=== PATIENT | female | born 1995 | race Caucasian/White ===

== ENCOUNTER → 2018-08-27 | Outpatient (CLI) | payer BC ==
[~2018-08-27] MED LIST: IOHEXOL 350 MG/ML 100 ML (OMNIPAQUE 350) VIAL IV ONE; NS 100 ML (IVPB) BAG IV ONE; RECEIVED CONTRAST (Hold Metformin) IV SCH
--- NOTE | 2018-08-27 16:33 | Diagnostic Imaging Report ---
PROCEDURE: CT neck soft tissue with contrast. TECHNIQUE: Multiple contiguous axial images were obtained through the neck after the administration of contrast. INDICATION: Enlarged salivary gland. COMPARISON: There are no prior studies available for comparison. FINDINGS: The left submandibular gland does seem slightly larger than the right. The left submandibular gland measures approximately 3.0 cm in maximum length while the right is estimated to be 2.7 cm. The submandibular glands appear homogeneous and symmetrical otherwise. The left parotid gland may also be slightly larger than the right. There is no focal mass involving either parotid gland. The thyroid gland is not enlarged and generally homogeneous. There is no mass or adenopathy involving the neck. The lung apices are clear. The bone window show no evidence for a fracture or an acute abnormality. However, the heads of the clavicles do lie posterior to the expected articulation with the sternum. This finding is probably long-standing in nature. Whether this is a sequela of prior trauma or due to an underlying connective tissue abnormality is not certain. Correlation with the patient's physical exam would be recommended. There is no fracture identified. The intracranial contents, where visualized, are unremarkable. The normal tentorial blush is evident. IMPRESSION: 1. The left submandibular gland and left parotid gland seem slightly larger than the corresponding right submandibular and parotid glands. There is no focal abnormality involving either the submandibular or parotid glands, however. 2. There is no acute abnormality of the neck. Dictated by: Dictated on workstation # [id number]
== END ==
LOC: RAD 15:00
PROVIDERS: ATTEND Otolaryngology Otolaryngology/Facial Plastic Surgery
DX: K11.1 Hypertrophy of salivary gland (principal)
CPT/HCPCS: 70491

== ENCOUNTER 2018-10-15 05:31 | Outpatient (CLI) | payer BC ==
[~2018-10-15] VITALS: Ht 175.3 cm; Wt 106.6 kg
[2018-10-15] MEDS ORDERED: TRAZ-189 PO (10:06)
[2018-10-15] MEDS ORDERED: SERT50TA9 PO (10:19)
[2018-10-15] MEDS ORDERED: bcp PO (10:19)
== END 2018-10-15 10:23 | disposition home or self-care (01) ==
LOC: PREOP 05:31
PROVIDERS: ATTEND Otolaryngology Otolaryngology/Facial Plastic Surgery
DX: Z01.818 Encounter for other preprocedural examination (principal)

== ENCOUNTER 2018-10-19 06:55 | Day surgery (SDC) | payer BC ==
[~2018-10-19] VITALS: Ht 175.3 cm; Wt 106.6 kg
[~2018-10-19 06:55] MED LIST changes: -IOHEXOL 350 MG/ML 100 ML (OMNIPAQUE 350) VIAL IV ONE; -NS 100 ML (IVPB) BAG IV ONE; -RECEIVED CONTRAST (Hold Metformin) IV SCH; +SERT50TA9 PO; +TRAZ-189 PO; +bcp PO
--- OUTSIDE RECORDS SUMMARY | 2018-10-19 06:59 | XMS REPORT | Clinical Summary ---
Author Author Admin, E Organization [employer] Address Unknown Phone Unavailable Allergies, Adverse Reactions, Alerts Allergy Name Reaction Description Start Date Severity Status Provider FENTANYL rash Critical Active Berto Hernández DO Conditions or Problems Problem Name Problem Code Onset Date Status Entry Date Provider Comment Standard Description Annotate Asthma, with acute exacerbation 493.92 Active Berto Hernández DO Asthma, unspecified with (acute) exacerbation Bronchitis 490 Active Jillina Frazell C ARCHITECT Bronchitis, not specified as acute or chronic Medication List Medication Instructions Start Date Stop Date Generic Name NDC Status Provider Patient Instruction VENTOLIN HFA 108 (90 BASE) MCG/ACT AERS 2 puffs q4hr PRN SOA ALBUTEROL SULFATE 63243117106 Active Jillina Frazell C ARCHITECT Active DIPHENHYDRAMINE HCL 25 MG ORAL TABS 1 tab po q pm DIPHENHYDRAMINE HCL 42359600888 Active Jillina Frazell C ARCHITECT Active CLARITIN 10 MG TAB 1 tab po q am LORATADINE 48105080438 Active Jillina Frazell C ARCHITECT Active PREDNISONE 20 MG TAB 2 tabs daily for 4 days, 1 tab daily for 4 days, 1/2 tab daily for 4 days PREDNISONE 52084236848 Active Jillina Frazell C ARCHITECT Active AZITHROMYCIN 250 MG TABS 2 po qd x 1 day, then 1 po qd x 4 days AZITHROMYCIN 55756936683 Active Jillina Frazell C ARCHITECT Active HYDROCODONE-ACETAMINOPHEN 5-325 MG TABS 1 tablet at night as needed for cough HYDROCODONE-ACETAMINOPHEN 04343335340 No Longer Active Jillina Frazell C ARCHITECT Active PREDNISONE 20 MG TAB 1 tablet twice daily for 2 days, then 1 tablet once daily for 2 days PREDNISONE 00193720966 No Longer Active Lina Coley APRN Active AZITHROMYCIN 250 MG TABS 2 po qd x 1 day, then 1 po qd x 4 days AZITHROMYCIN 79399286606 No Longer Active Berto Hernández DO Active ENSKYCE 0.15-30 MG-MCG ORAL TABS Take one by mouth daily DESOGESTREL-ETHINYL ESTRADIOL 25700102879 Active Berto Hernández DO Active PREDNISONE 20 MG TAB 1 tablet twice daily for 2 days, then 1 tablet once daily for 2 days PREDNISONE 20 MG TAB 692226 PREDNISONE Inactive HYDROCODONE-ACETAMINOPHEN 5-325 MG TABS 1 tablet at night as needed for cough HYDROCODONE-ACETAMINOPHEN 5-325 MG TABS 135353 HYDROCODONE-ACETAMINOPHEN Inactive AZITHROMYCIN 250 MG TABS 2 po qd x 1 day, then 1 po qd x 4 days AZITHROMYCIN 250 MG TABS 2620314 AZITHROMYCIN Inactive Vital Signs Date Name Value Unit Range Description blood pressure, diastolic - 8462-4 62 mm[Hg] BP joyner blood pressure, systolic - 8480-6 114 mm[Hg] BP sys height E&M - 8302-2 69 [in_us] Bdy height pulse rate E&M - 8867-4 72 /min Heart rate temperature E&M 99.3 [degF] Body temperature weight E&M - 3141-9 196 [lb_av] Weight Measured blood pressure, diastolic - 8462-4 76 mm[Hg] BP joyner blood pressure, systolic - 8480-6 117 mm[Hg] BP sys height E&M - 8302-2 69 [in_us] Bdy height pulse rate E&M - 8867-4 61 /min Heart rate temperature E&M 98.5 [degF] Body temperature weight E&M - 3141-9 188.5 [lb_av] Weight Measured Encounters Code Encounter Date Provider Facility CPT-97221 Level 4 Est. Patient 09:04:07 CDT Lina Coley APRN [facility] CPT-40482 Level 3 New Patient 17:46:16 CDT Berto Hernández DO [facility]
--- OUTSIDE RECORDS SUMMARY | 2018-10-19 06:59 | XMS REPORT | Clinical Summary ---
Author Author Admin, E Organization [facility] Address Unknown Phone Unavailable Allergies, Adverse Reactions, Alerts Allergy Name Reaction Description Start Date Severity Status Provider FENTANYL rash Critical Active Berto Hernández DO Conditions or Problems Problem Name Problem Code Onset Date Status Entry Date Provider Comment Standard Description Annotate Asthma, with acute exacerbation 493.92 Active Berto Hernández DO Asthma, unspecified with (acute) exacerbation Bronchitis 490 Active Jillina Frazell SUPERVISOR [employer]LECTRON[employer]SEMBL[employer] Bronchitis, not specified as acute or chronic Medication List Medication Instructions Start Date Stop Date Generic Name NDC Status Provider Patient Instruction SYMBICORT 160-4.5 MCG/ACT INH AERO BUDESONIDE-FORMOTEROL FUMARATE 13478210489 Active Jillina Frazell SUPERVIS[employer] Active VENTOLIN HFA 108 (90 BASE) MCG/ACT AERS 2 puffs q4hr PRN SOA ALBUTEROL SULFATE 83497905461 Active Jillina Frazell SUPERVISOR ELECTRONICS [employer]SEMBLY Active DIPHENHYDRAMINE HCL 25 MG ORAL TABS 1 tab po q pm DIPHENHYDRAMINE HCL 74714528688 Active Jillina Frazell SUPERVISOR ELECTRONICS [employer]SEMBLY Active CLARITIN 10 MG TAB 1 tab po q am LORATADINE 98240877042 Active Jillina Frazell SUPERVISOR [employer]LECTRONICS [employer]SEMBLY Active PREDNISONE 20 MG TAB 2 tabs daily for 4 days, 1 tab daily for 4 days, 1/2 tab daily for 4 days PREDNISONE 02120536242 Active Jillina Frazell SUPERVISOR [employer]SEMBLY Active AZITHROMYCIN 250 MG TABS 2 po qd x 1 day, then 1 po qd x 4 days AZITHROMYCIN 66613405915 Active Jillina Frazell SUPERVISOR [employer]LECTRONICS [employer]SEMBLY Active HYDROCODONE-ACETAMINOPHEN 5-325 MG TABS 1 tablet at night as needed for cough HYDROCODONE-ACETAMINOPHEN 77845008882 No Longer Active Rolaina Fradahlia SUPERVISOR [employer]LECTRONICS [employer]SEMBLY Active PREDNISONE 20 MG TAB 1 tablet twice daily for 2 days, then 1 tablet once daily for 2 days PREDNISONE 12148696322 No Longer Active Jillina Frazell SUPERVISOR [employer]LECTRONICS [employer]SEMBLY Active AZITHROMYCIN 250 MG TABS 2 po qd x 1 day, then 1 po qd x 4 days AZITHROMYCIN 17820899326 No Longer Active Berto Hernández DO Active ENSKYCE 0.15-30 MG-MCG ORAL TABS Take one by mouth daily DESOGESTREL-ETHINYL ESTRADIOL 81808575147 Active Berto Hernández DO Active PREDNISONE 20 MG TAB 1 tablet twice daily for 2 days, then 1 tablet once daily for 2 days PREDNISONE 20 MG TAB 845991 PREDNISONE Inactive HYDROCODONE-ACETAMINOPHEN 5-325 MG TABS 1 tablet at night as needed for cough HYDROCODONE-ACETAMINOPHEN 5-325 MG TABS 113848 HYDROCODONE-ACETAMINOPHEN Inactive AZITHROMYCIN 250 MG TABS 2 po qd x 1 day, then 1 po qd x 4 days AZITHROMYCIN 250 MG TABS 1157317 AZITHROMYCIN Inactive Vital Signs Date Name Value [...] Measured Encounters Code Encounter Date Provider Facility CPT-79407 Level 4 Est. Patient 09:04:07 CDT Lina Coley APRN [facility] CPT-11655 Level 3 New Patient 17:46:16 CDT Berto Hernández DO [facility]
--- OUTSIDE RECORDS SUMMARY | 2018-10-19 06:59 | XMS REPORT ---
Author Author [facility] Medical Staff Organization [employer] [facility] Address [address] [place], [place] [address] Phone [phone] Summary purpose TRANSITION OF CARE AUTO GENERATION Chief Complaint and Reason for Visit No authorized Reason for Visit (Admitting Diagnosis) is available for this visit. Problem list No authorized problems tracked for continuity of care are available for this visit. Encounters No authorized problems tracked for encounter diagnoses are available for this visit. Medications No medications recorded for this patient visit Allergies, adverse reactions, alerts Allergen Category Ingredient Status Reaction Severity Onset fentanyl Drug Allergy fentanyl Confirmed or Verified Immunizations No immunizations recorded for this patient visit Relevant diagnostic tests and/or laboratory data No authorized results are available for this patient visit History of procedures No procedures recorded for this patient visit. Functional status Functional Status Finding Observation Time Abdomen Appearance flat :35 Abdomen non-tender :35 Padilla no :35 Urination normal :35 Quality tachypneic :35 Cough absent :35 Secretions no :35 Breath Sounds RUL clear :50 Breath Sounds RML clear :50 Breath Sounds RLL clear :50 Breath Sounds VERONIQUE clear :50 Breath Sounds LLL clear :50 Airway natural :35 Chest Tube no :35 Oxygen no :30 Oxygen Flow Rate ra :43 Temp >100.4 no :35 Temp <96.8 no :35 Chills with rigors no :35 HR > 90bpm yes :35 Respirations > 20 yes :35 Systolic <90 no :35 headache stiff neck no :35 IV Site Location no iv access :00 Nursing Note tylenol 975mg po administered with water for FRANKLIN which pt rates . :25 Vital signs Type Value Date Respiration Rate 18breaths per minute : Pulse 86beats per minute :30 Oxygen Saturation 99% :30 BP Systolic 126mmHg :30 BP Diastolic 63mmHg :30 Temperature 98.3F :30 Social history Type Value Smoking Status NEVER SMOKER Treatment Plan No treatment plan text is available for this visit. Hospital discharge instructions Dismissal Condition good Disposition on DC home DC Inst/Educ Give yes Med/Side Effects Rev yes
--- OUTSIDE RECORDS SUMMARY | 2018-10-19 06:59 | XMS REPORT ---
Author Author [facility] [employer] [facility] Medical Staff Organization [employer] [facility] Address [address] [place], [place] [address] Phone [phone] Summary purpose TRANSITION OF CARE AUTO GENERATION [...]
[2018-10-19 07:00] VITALS: BP 117/65
--- OUTSIDE RECORDS SUMMARY | 2018-10-19 07:00 | XMS REPORT | Clinical Summary ---
Author Author Admin, E Organization [employer] [facility] Address Unknown Phone Unavailable Allergies, Adverse Reactions, Alerts Allergy Name Reaction Description Start Date Severity Status Provider FENTANYL rash Critical Active Berto Hernández DO Conditions or Problems Problem Name Problem Code Onset Date Status Entry Date Provider Comment Standard Description Annotate Asthma, with acute exacerbation 493.92 Active Berto Hernández DO Asthma, unspecified with (acute) exacerbation Bronchitis 490 Active Jillina Frazell ELECTRICAL FITTER Bronchitis, not specified as acute or chronic Medication List Medication Instructions Start Date Stop Date Generic Name NDC Status Provider Patient Instruction SYMBICORT 160-4.5 MCG/ACT INH AERO BUDESONIDE-FORMOTEROL FUMARATE 78200447112 Active Jillina Frazell ELECTRICAL FITTER Active VENTOLIN HFA 108 (90 BASE) MCG/ACT AERS 2 puffs q4hr PRN SOA ALBUTEROL SULFATE 90838025751 Active Jillina Frazell ELECTRICAL FITTER Active DIPHENHYDRAMINE HCL 25 MG ORAL TABS 1 tab po q pm DIPHENHYDRAMINE HCL 62885766807 Active Jillina Frazell ELECTRICAL FITTER Active CLARITIN 10 MG TAB 1 tab po q am LORATADINE 07946297670 Active Jillina Frazell ELECTRICAL FITTER Active PREDNISONE 20 MG TAB 2 tabs daily for 4 days, 1 tab daily for 4 days, 1/2 tab daily for 4 days PREDNISONE 28383260476 Active Jillina Frazell ELECTRICAL FITTER Active AZITHROMYCIN 250 MG TABS 2 po qd x 1 day, then 1 po qd x 4 days AZITHROMYCIN 92473931610 Active Jillina Frazell ELECTRICAL FITTER Active HYDROCODONE-ACETAMINOPHEN 5-325 MG TABS 1 tablet at night as needed for cough HYDROCODONE-ACETAMINOPHEN 82315461951 No Longer Active Rolaina Fradahlia ELECTRICAL FITTER Active PREDNISONE 20 MG TAB 1 tablet twice daily for 2 days, then 1 tablet once daily for 2 days PREDNISONE 72649218031 No Longer Active Jillina Frazell ELECTRICAL FITTER Active AZITHROMYCIN 250 MG TABS 2 po qd x 1 day, then 1 po qd x 4 days AZITHROMYCIN 69087076248 No Longer Active Berto Hernández DO Active ENSKYCE 0.15-30 MG-MCG ORAL TABS Take one by mouth daily DESOGESTREL-ETHINYL ESTRADIOL 48787908504 Active Berto Hernández DO Active PREDNISONE 20 MG TAB 1 tablet twice daily for 2 days, then 1 tablet once daily for 2 days PREDNISONE 20 MG TAB 560537 PREDNISONE Inactive HYDROCODONE-ACETAMINOPHEN 5-325 MG TABS 1 tablet at night as needed for cough HYDROCODONE-ACETAMINOPHEN 5-325 MG TABS 903875 HYDROCODONE-ACETAMINOPHEN Inactive AZITHROMYCIN 250 MG TABS 2 po qd x 1 day, then 1 po qd x 4 days AZITHROMYCIN 250 MG TABS 5467258 AZITHROMYCIN Inactive Vital Signs Date Name Value [...] Measured Encounters Code Encounter Date Provider Facility CPT-23964 Level 4 Est. Patient 09:04:07 CDT Lina Coley APRN [facility] CPT-64587 Level 3 New Patient 17:46:16 CDT Berto Hernández DO [facility]
--- OUTSIDE RECORDS SUMMARY | 2018-10-19 07:00 | XMS REPORT | Clinical Summary ---
Author Author Admin, E Organization [employer] Address Unknown Phone Unavailable Allergies, Adverse Reactions, Alerts Allergy Name Reaction Description Start Date Severity Status Provider FENTANYL rash Critical Active Berto Hernández DO Conditions or Problems Problem Name Problem Code Onset Date Status Entry Date Provider Comment Standard Description Annotate Asthma, with acute exacerbation 493.92 Active Berto Hernández DO Asthma, unspecified with (acute) exacerbation Medication List Medication Instructions Start Date Stop Date Generic Name NDC Status Provider Patient Instruction HYDROCODONE-ACETAMINOPHEN 5-325 MG TABS 1 tablet at night as needed for cough HYDROCODONE-ACETAMINOPHEN 91234945253 Active Berto Hernández DO Active PREDNISONE 20 MG TAB 1 tablet twice daily for 2 days, then 1 tablet once daily for 2 days PREDNISONE 85258068977 Active Berto Hernández DO Active AZITHROMYCIN 250 MG TABS 2 po qd x 1 day, then 1 po qd x 4 days AZITHROMYCIN 34520037485 Active Berto Hernández DO Active ENSKYCE 0.15-30 MG-MCG ORAL TABS Take one by mouth daily DESOGESTREL-ETHINYL ESTRADIOL 65844341396 Active Berto Hernández DO Active Vital Signs Date Name Value Unit Range Description blood pressure, diastolic - 8462-4 76 mm[Hg] BP joyner blood pressure, systolic - 8480-6 117 mm[Hg] BP sys height E&M - 8302-2 69 [in_us] Bdy height pulse rate E&M - 8867-4 61 /min Heart rate temperature E&M 98.5 [degF] Body temperature weight E&M - 3141-9 188.5 [lb_av] Weight Measured Encounters Code Encounter Date Provider Facility CPT-36061 Level 3 New Patient 17:46:16 CDT Berto Phillips [facility]
--- OUTSIDE RECORDS SUMMARY | 2018-10-19 07:00 | XMS REPORT | Clinical Summary ---
Author Author Admin, E Organization [employer] Address Unknown Phone Unavailable Allergies, Adverse Reactions, [...] at night as needed for cough HYDROCODONE-ACETAMINOPHEN 12269887194 Active Berto Hernández DO Active PREDNISONE 20 MG TAB 1 tablet twice daily for 2 days, then 1 tablet once daily for 2 days PREDNISONE 01548629403 Active Berto Hernández DO Active AZITHROMYCIN 250 MG TABS 2 po qd x 1 day, then 1 po qd x 4 days AZITHROMYCIN 50735221444 No Longer Active Berto Hernández DO Active ENSKYCE 0.15-30 MG-MCG ORAL TABS Take one by mouth daily DESOGESTREL-ETHINYL ESTRADIOL 65930180818 Active Berto Hernández DO Active AZITHROMYCIN 250 MG TABS 2 po qd x 1 day, then 1 po qd x 4 days AZITHROMYCIN 250 MG TABS 2159604 AZITHROMYCIN Inactive Vital Signs Date Name Value [...] Measured Encounters Code Encounter Date Provider Facility CPT-21387 Level 3 New Patient 17:46:16 CDT Berto Hernández DO [facility]
--- OUTSIDE RECORDS SUMMARY | 2018-10-19 07:00 | XMS REPORT | Clinical Summary ---
Author Author Admin, E Organization [facility] Address Unknown Phone Unavailable Allergies, Adverse Reactions, Alerts Allergy Name Reaction Description Start Date Severity Status Provider FENTANYL rash Critical Active Berto Hernández DO Conditions or Problems Problem Name Problem Code Onset Date Status Entry Date Provider Comment Standard Description Annotate Asthma, with acute exacerbation 493.92 Active Berto Hernández DO Asthma, unspecified with (acute) exacerbation Bronchitis 490 Active Jillina Frazell CEMENT CAR DUMPER Bronchitis, not specified as acute or chronic Medication List Medication Instructions Start Date Stop Date Generic Name NDC Status Provider Patient Instruction SYMBICORT 160-4.5 MCG/ACT INH AERO BUDESONIDE-FORMOTEROL FUMARATE 62727056024 Active Jillina Frazell CEMENT CAR DUMPER Active VENTOLIN HFA 108 (90 BASE) MCG/ACT AERS 2 puffs q4hr PRN SOA ALBUTEROL SULFATE 79080309645 Active Jillina Frazell CEMENT CAR DUMPER Active DIPHENHYDRAMINE HCL 25 MG ORAL TABS 1 tab po q pm DIPHENHYDRAMINE HCL 59745058034 Active Jillina Frazell CEMENT CAR DUMPER Active CLARITIN 10 MG TAB 1 tab po q am LORATADINE 78109744391 Active Jillina Frazell CEMENT CAR DUMPER Active PREDNISONE 20 MG TAB 2 tabs daily for 4 days, 1 tab daily for 4 days, 1/2 tab daily for 4 days PREDNISONE 18322281243 Active Jillina Frazell CEMENT CAR DUMPER Active AZITHROMYCIN 250 MG TABS 2 po qd x 1 day, then 1 po qd x 4 days AZITHROMYCIN 05796306838 No Longer Active Jillina Frazell CEMENT CAR DUMPER Active HYDROCODONE-ACETAMINOPHEN 5-325 MG TABS 1 tablet at night as needed for cough HYDROCODONE-ACETAMINOPHEN 09714980981 No Longer Active Lina Coley APRN Active PREDNISONE 20 MG TAB 1 tablet twice daily for 2 days, then 1 tablet once daily for 2 days PREDNISONE 93045763379 No Longer Active Lina Coley APRN Active AZITHROMYCIN 250 MG TABS 2 po qd x 1 day, then 1 po qd x 4 days AZITHROMYCIN 46494701092 No Longer Active Berto Hernández DO Active ENSKYCE 0.15-30 MG-MCG ORAL TABS Take one by mouth daily DESOGESTREL-ETHINYL ESTRADIOL 81635342265 Active Berto Hernández DO Active PREDNISONE 20 MG TAB 1 tablet twice daily for 2 days, then 1 tablet once daily for 2 days PREDNISONE 20 MG TAB 599435 PREDNISONE Inactive HYDROCODONE-ACETAMINOPHEN 5-325 MG TABS 1 tablet at night as needed for cough HYDROCODONE-ACETAMINOPHEN 5-325 MG TABS 843593 HYDROCODONE-ACETAMINOPHEN Inactive AZITHROMYCIN 250 MG TABS 2 po qd x 1 day, then 1 po qd x 4 days AZITHROMYCIN 250 MG TABS 5340528 AZITHROMYCIN Inactive AZITHROMYCIN 250 MG TABS 2 po qd x 1 day, then 1 po qd x 4 days AZITHROMYCIN 250 MG TABS 7118477 AZITHROMYCIN Inactive Vital Signs Date Name Value Unit Range Description blood pressure, diastolic - 8462-4 62 mm[Hg] BP joyner blood pressure, systolic - 8480-6 114 mm[Hg] BP sys height E&M - 8302-2 69 [in_us] Bdy height pulse rate E&M - 8867-4 72 /min Heart rate temperature E&M 99.3 [degF] Body temperature weight E&M - 3141-9 196 [lb_av] Weight Measured Encounters Code Encounter Date Provider Facility CPT-50870 Level 4 Est. Patient 09:04:07 CDT Lina Coley APRN [facility] CPT-16782 Level 3 New Patient 17:46:16 CDT Berto Hernández DO [facility]
--- OUTSIDE RECORDS SUMMARY | 2018-10-19 07:00 | XMS REPORT | Clinical Summary ---
Author Author Admin, E Organization [facility] Address Unknown Phone Unavailable Allergies, Adverse Reactions, Alerts Allergy Name Reaction Description Start Date Severity Status Provider FENTANYL rash Critical Active Berto Hernández DO Conditions or Problems Problem Name Problem Code Onset Date Status Entry Date Provider Comment Standard Description Annotate Asthma, with acute exacerbation 493.92 Active Berto Hernández DO Asthma, unspecified with (acute) exacerbation Bronchitis 490 Active Jillina Frazell MARKETING AMBASSADOR Bronchitis, not specified as acute or chronic Medication List Medication Instructions Start Date Stop Date Generic Name NDC Status Provider Patient Instruction SYMBICORT 160-4.5 MCG/ACT INH AERO BUDESONIDE-FORMOTEROL FUMARATE 73718584088 Active Jillina Frazell MARKETING AMBASSADOR Active VENTOLIN HFA 108 (90 BASE) MCG/ACT AERS 2 puffs q4hr PRN SOA ALBUTEROL SULFATE 59054784598 Active Jillina Frazell MARKETING AMBASSADOR Active DIPHENHYDRAMINE HCL 25 MG ORAL TABS 1 tab po q pm DIPHENHYDRAMINE HCL 91287963261 Active Jillina Frazell MARKETING AMBASSADOR Active CLARITIN 10 MG TAB 1 tab po q am LORATADINE 05305162256 Active Jillina Frazell MARKETING AMBASSADOR Active PREDNISONE 20 MG TAB 2 tabs daily for 4 days, 1 tab daily for 4 days, 1/2 tab daily for 4 days PREDNISONE 30924476669 Active Jillina Frazell MARKETING AMBASSADOR Active AZITHROMYCIN 250 MG TABS 2 po qd x 1 day, then 1 po qd x 4 days AZITHROMYCIN 87653201972 No Longer Active Jillina Frazell MARKETING AMBASSADOR Active HYDROCODONE-ACETAMINOPHEN 5-325 MG TABS 1 tablet at night as needed for cough HYDROCODONE-ACETAMINOPHEN 99166283891 No Longer Active Lina Coley APRN Active PREDNISONE 20 MG TAB 1 tablet twice daily for 2 days, then 1 tablet once daily for 2 days PREDNISONE 07431012717 No Longer Active Lina Coley APRN Active AZITHROMYCIN 250 MG TABS 2 po qd x 1 day, then 1 po qd x 4 days AZITHROMYCIN 06326674080 No Longer Active Berto Hernández DO Active ENSKYCE 0.15-30 MG-MCG ORAL TABS Take one by mouth daily DESOGESTREL-ETHINYL ESTRADIOL 65655826761 Active Berto Hernández DO Active PREDNISONE 20 MG TAB 1 tablet twice daily for 2 days, then 1 tablet once daily for 2 days PREDNISONE 20 MG TAB 639057 PREDNISONE Inactive HYDROCODONE-ACETAMINOPHEN 5-325 MG TABS 1 tablet at night as needed for cough HYDROCODONE-ACETAMINOPHEN 5-325 MG TABS 301037 HYDROCODONE-ACETAMINOPHEN Inactive AZITHROMYCIN 250 MG TABS 2 po qd x 1 day, then 1 po qd x 4 days AZITHROMYCIN 250 MG TABS 9623035 AZITHROMYCIN Inactive AZITHROMYCIN 250 MG TABS 2 po qd x 1 day, then 1 po qd x 4 days AZITHROMYCIN 250 MG TABS 4389120 AZITHROMYCIN Inactive Vital Signs Date Name Value [...] Measured Encounters Code Encounter Date Provider Facility CPT-48430 Level 4 Est. Patient 09:04:07 CDT Lina Coley APRN [facility] CPT-09647 Level 3 New Patient 17:46:16 CDT Berto Hernández DO [facility]
--- OUTSIDE RECORDS SUMMARY | 2018-10-19 07:00 | XMS REPORT | Continuity of Care Document ---
Demographics x Preferred Language Unknown Marital Status Unknown Temple Affiliation Unknown Race Unknown Ethnic Group Unknown Author Author [facility] Organization [facility] Address Unknown Phone Unavailable Allergies Active Description Code Type Severity Reaction Onset Reported/Identified Relationship to Patient Clinical Status Yes fentanyl 3571 Drug Allergy N/A N/A Confirmed or Verified Yes FENTANYL 77575 DRUG INGREDI Low ItchingRRash 11/24/2014 Yes FENTANYL 02333 DRUG INGREDI Low Itching~Rash 11/24/2014 Yes FENTANYL 59365 DRUG INGREDI Low ItchingRRash 11/24/2014 Yes FENTANYL 27780 DRUG INGREDI Low Itching~Rash 11/24/2014 Medications Medication Packaging Start Date Stop Date Route Dosage Sig DEXAMETHASONE 1 MG PO TABS 2016 Oral 1 ONCE Problems Date Dx Coded Attending Type Code Diagnosis Diagnosed By 11/26/2014 V 668287 Knee Pain FERCHO DUTTON 11/26/2014 V 836.1 Tear of lateral cartilage or meniscus of knee, current ANNEFERCHO 06/28/2016 V R55 Syncope and collapse 06/28/2016 V R94.6 Abnormal results of thyroid function studies 06/28/2016 KAMALJIT DE LOS SANTOS V R55 Syncope and collapse KAMALJIT DE [place]OS 06/28/2016 KAMALJIT DE [place]OS V R55 Syncope and collapse KAMALJIT DE [place]OS 06/28/2016 KAMALJIT DE [place] V R94.6 Abnormal results of thyroid function studies KAMALJIT DE [place]ANTOS Procedures Code Description Performed By Performed On [id number] NEISSERIA GONORRHOEAE AMPLIFIED PROBE 06/22/2015 [id number] CHLAMYDIA TRACHOMATIS AMPLIFIED PROBE 06/22/2015 QFX168 T4, FREE 06/22/2016 OEW518 T3 06/22/2016 LAB17 COMPREHENSIVE METABOLIC PANEL 06/22/2016 [id number] CBC WITH AUTO DIFFERENTIAL 06/22/2016 [id number] URINALYSIS, REFLEX CULTURE IF NEEDED 06/22/2016 IEY9672 TSH (REFLEX FREE T4 IF ABNORMAL) 06/22/2016 [id number] CBC AND DIFFERENTIAL 06/22/2016 [id number] DRUG SCREEN (8) MEDICAL 06/22/2016 Results Test Result Range NEISSERIA GONORRHOEAE AMPLIFIED PROBE - 06/22/15 15:34 1837 Negative Negative NEISSERIA GONORRHOEAE AMPLIFIED PROBE - 06/22/15 15:34 1502 See combined Chlamydia/Neisseria gonorrhea result CBC WITH AUTO DIFFERENTIAL - 06/22/16 09:51 BASOPHILS RELATIVE PERCENT 0.3 % 0.0-2.5 EOSINOPHILS RELATIVE PERCENT 1.0 % <=5.0 HEMATOCRIT 44.1 % 34.9-44.5 HEMOGLOBIN 14.3 g/dL 12.0-15.5 LYMPHOCYTES RELATIVE PERCENT 31.3 % 22.0-49.0 MEAN CORPUSCULAR HEMOGLOBIN 30.3 pg 26.0-34.0 MEAN CORPUSCULAR HEMOGLOBIN CONC 32.5 g/dL 31.0-37.0 MEAN CORPUSCULAR VOLUME 93.0 fL 81.6-98.3 MONOCYTES RELATIVE PERCENT 8.8 % 2.0-9.0 NEUTROPHILS RELATIVE PERCENT 58.6 % 40.0-75.0 PLATELET COUNT 300 10E9/L 150-450 RED BLOOD CELL COUNT 4.74 10E12/L 3.90-5.03 RED CELL DISTRIBUTION WIDTH 13.0 % 11.9-15.5 [id number] 6.9 10E9/L 3.5-10.5 9739363 2.10 10E9/L 0.90-2.90 3387241 0.60 10E9/L 0.30-0.90 9422847 0.10 10E9/L 0.05-0.50 3976907 4.00 10E9/L 1.70-7.00 [id number] 0.00 10E9/L 0.00-0.30 URINALYSIS, REFLEX CULTURE IF NEEDED - 06/22/16 09:51 APPEARANCE Clear [none] BILIRUBIN UA Negative Negative COLOR Yellow [none] GLUCOSE UA Negative Negative HEMOGLOBIN UA Negative Negative LEUKOCYTE ESTERASE UA Negative Negative MUCOUS 1+ FEW NITRATE UA Negative Negative PH UA 5.5 5.0-8.0 PROTEIN UA Negative Negative RBC UA 0-3 0-3 SPECIFIC GRAVITY UA 1.022 1.003-1.030 SQUAMOUS EPITHELIAL 1+ 1+ UROBILINOGEN UA 0.2 mg/dL 0.2 WBC UA 0-3 /HPF 0-3 [id number] Negative Negative T3 - 06/22/16 09:51 TOTAL T3 194 ng/dL 60-181 DRUG SCREEN (8) MEDICAL - 06/22/16 09:51 AMPHETAMINE Negative Cutoff 1000 ng/mL Negative BARBITURATES Negative Cutoff 200 ng/mL Negative BENZODIAZEPINES Negative Cutoff 200 ng/mL Negative COCAINE (METABOLITE) Negative Cutoff 300 ng/mL Negative MDMA URINE Negative Cutoff 500 ng/mL Negative OPIATES Negative Cutoff 300 ng/mL Negative PCP Negative Cutoff 25 ng/mL Negative PH UA 5.0 5.0-8.0 SPECIFIC GRAVITY UA 1.026 1.003-1.030 THC Negative Cutoff 50 ng/mL Negative [id number] Chain of custody not received T4, FREE - 08/12/16 10:09 FREE T4 1.24 ng/dL 0.70-1.71 T3 - 08/12/16 10:09 TOTAL T3 155 ng/dL 60-181 THYROID PEROXIDASE ANTIBODY - 08/12/16 10:09 THYROID PEROXIDASE ANTIBODY 8 IU/mL 0 - 34 THYROTROPIN RECEPTOR ANTIBODY - 08/12/16 10:09 THYROTROPIN RECEPTOR ANTIBODY <0.50 IU/L 0.00 - 1.75 ACTH - 08/12/16 10:09 ADRENOCORTICOTROPIC HORMONE 17.2 pg/mL 7.2 - 63.3 T4, FREE - 01/02/17 10:44 FREE T4 1.04 ng/dL 0.70-1.71 HOLD FOR FURTHER TESTING - 01/04/17 08:12 1324 Extra tube in lab CORTISOL,DEXA.SUPPRESS - 01/04/17 08:12 [id number] < ug/dL <=5.0 PAP, LIQUID-BASED - 06/29/17 15:00 [id number] Result to be found under pathology section PAP, LIQUID-BASED WITH REFLEX HPV IF ASCUS - 07/20/18 13:50 [id number] Result to be found under pathology section Encounters ACCT No. Visit Date/Time Discharge Status Pt. Type Provider Facility Loc./Unit Complaint [id number] 11/11/2015 23:37:00 11/12/2015 00:30:00 DIS Emergency BIRDIE BANSAL [facility] EMR [id number] 01/04/2017 07:58:31 01/04/2017 23:59:59 [facility] Outpatient [facility] CODE [id number] 01/02/2017 10:44:31 01/02/2017 23:59:59 [facility] Outpatient [facility] CODE [id number] 01/02/2017 09:55:24 01/02/2017 23:59:59 CLS Outpatient SIGIFREDO TORRES [facility] CODE [id number] 08/12/2016 10:05:27 08/12/2016 23:59:59 CLS Outpatient [facility] CODE [id number] 08/12/2016 09:17:55 08/12/2016 23:59:59 CLS Outpatient SIGIFREDO TORRES [facility] CODE [id number] 07/19/2016 12:49:11 07/19/2016 23:59:59 CLS Outpatient [facility] HCOT [id number] 07/19/2016 10:26:15 07/19/2016 23:59:59 CLS Outpatient GEO JIANG [facility] 901 [id number] 06/28/2016 14:48:04 06/28/2016 23:59:00 [place] [facility] [facility] [id number] 06/28/2016 10:23:00 06/28/2016 14:47:00 [place] [facility] [id number] 06/27/2016 14:58:39 06/27/2016 23:59:00 [place] [facility] [id number] 06/22/2016 09:41:46 06/22/2016 23:59:59 CLS Outpatient [facility] 901 [id number] 06/22/2016 08:53:41 06/22/2016 23:59:59 [facility] 901 [id number] 08/03/2018 07:46:40 Document Registration [id number] 07/19/2017 10:38:43 Document Registration [id number] 01/02/2017 13:58:38 Document Registration [id number] 06/26/2015 08:32:02 Document Registration [id number] 11/26/2014 10:53:00 Document Registration [id number] 10/10/2018 11:09:13 10/10/2018 23:59:59 CLS Outpatient PENNY THOMSON [place] [facility] [id number] 07/20/2018 15:33:46 07/20/2018 23:59:59 C[facility] [place] [facility] [id number] 07/20/2018 13:34:55 07/20/2018 23:59:59 CLS Outpatient GAURAV MATOS [place] [employer] [employer] [id number] 06/29/2017 16:21:49 06/29/2017 23:59:59 CLS Outpatient [place] [facility] [id number] 06/29/2017 14:40:36 06/29/2017 23:59:59 CLS Outpatient KAMALJIT QUEEN [facility] [id number] 06/27/2016 09:05:29 06/27/2016 23:59:59 CLS Outpatient GAURAV MATOS [place] [facility] [id number] 06/22/2015 15:32:46 Document Registration [id number] 11/30/2016 14:39:16 ACT Unknown
[2018-10-19] MEDS: LACTATED RINGERS 1,000 ML IV PRN ×2 (07:30→09:00)
[2018-10-19 07:42] LABS: BASOPHILS % (AUTO) 1 % (0-10); EOSINOPHILS # (AUTO) 0.2 10^3/uL (0.0-0.3); EOSINOPHILS % (AUTO) 4 % (0-10); HEMATOCRIT 39 % (35-52); HEMOGLOBIN 12.9 G/DL (11.5-16.0); LYMPHOCYTES # (AUTO) 2.2 X 10^3 (1.0-4.0); LYMPHOCYTES % (AUTO) 38 % (12-44); MEAN CORPUSCULAR HEMOGLOBIN 31 PG (25-34); MEAN CORPUSCULAR HGB CONC 33 G/DL (32-36); MEAN CORPUSCULAR VOLUME 92 FL (80-99); MEAN PLATELET VOLUME 8.4 FL (7.4-10.4); MONOCYTES # (AUTO) 0.6 X 10^3 (0.0-1.0); MONOCYTES % (AUTO) 11 % (0-12); NEUTROPHILS # (AUTO) 2.7 X 10^3 (1.8-7.8); NEUTROPHILS % (AUTO) 47 % (42-75); PLATELET COUNT 256 10^3/uL (130-400); RED CELL DISTRIBUTION WIDTH 13.5 % (10.0-14.5); WHITE BLOOD COUNT 5.8 10^3/uL (4.3-11.0)
[2018-10-19 07:56] LABS: BUN/CREATININE RATIO 11; CALCIUM 8.4 MG/DL (8.5-10.1); CARBON DIOXIDE 22 MMOL/L (21-32); CHLORIDE 110 MMOL/L (98-107); CREATININE SERUM 1.11 MG/DL (0.60-1.30); GFR ESTIMATED > 60; GLUCOSE 95 MG/DL (70-105); POTASSIUM 3.8 MMOL/L (3.6-5.0); SODIUM 140 MMOL/L (135-145)
[2018-10-19] MEDS ORDERED: HYDROmorphone 2 MG/ML VIAL (DILAUDID) ONE (08:06)
[2018-10-19] MEDS ORDERED: proPOfol 200 MG/20 ML (DIPRIVAN) VIAL IV ONE ×3 (08:08→09:07)
[2018-10-19] MEDS ORDERED: ROCURONIUM 10 MG/ML 5 ML SYRINGE IV ONE ×2 (08:08→08:39)
[2018-10-19] MEDS ORDERED: DEXAMETHASONE 10 MG/ML (DECADRON) 1 ML VIAL ONE (08:08)
[2018-10-19] MEDS ORDERED: LIDOCAINE PF 2% 5 ML (XYLOCAINE) VIAL ONE (08:08)
[2018-10-19] MEDS ORDERED: ONDANSETRON 4 MG/2 ML (SDV) Z0FRAN ONE ×2 (08:08)
[2018-10-19] MEDS ORDERED: MIDAZOLAM 2 MG/2 ML (VERSED) VIAL ONE (08:08)
[2018-10-19] MEDS ORDERED: SEVOFLURANE (ULTANE) 15 ML INHAL SOLN ONE ×4 (08:19→09:06)
--- NOTE | 2018-10-19 08:23 | Progress Note-Pre Operative ---
Pre-Operative Progress Note H&P Reviewed The H&P was reviewed, patient examined and no changes noted. Date Seen by Provider: Oct 19, 2018 Time Seen by Provider: 08:15 Date H&P Reviewed: Oct 19, 2018 Time H&P Reviewed: 08:15 Pre-Operative Diagnosis: Right Floor of Mouth Mass JULIO WOODS MD Oct 19, 2018 08:23
[2018-10-19] MEDS ORDERED: SUCCINYLCHOLINE INJ 100 MG/5 ML SYR ONE (08:35)
[2018-10-19] MEDS ORDERED: GLYCOPYRROLATE 0.2 MG/ML (ROBINUL) 2 ML VIAL ONE (09:07)
[2018-10-19] MEDS ORDERED: NEOSTIGMINE 1 MG/ML 5 ML SYRINGE ONE (09:07)
[2018-10-19] MEDS: LIDOCAINE/EPI 1%-1:100,000 (XYLOCAINE) 20ML ONE ×2 (09:13→09:15)
[2018-10-19] MEDS ORDERED: LIDOCAINE 2% VISCOUS 15 ML UDC PO PRN (09:15)
[2018-10-19] MEDS ORDERED: HYDROcodone/APAP 5 MG/325 MG (LORTAB) TAB PO PRN (09:15)
[2018-10-19] MEDS ORDERED: ACETAMINOPHEN 325 MG TABLET PO PRN (09:15)
--- NOTE | 2018-10-19 09:15 | Progress Note-Post Operative ---
Post-Operative Progess Note Surgeon (s)/Priest (s) Surgeon JULIO WOODS MD Priest n/a Pre-Operative Diagnosis Right Floor of Mouth Mass Post-Operative Diagnosis same Post-Op Procedure Note Date of Procedure: Oct 19, 2018 Name of Procedure Performed: Excision of Ranula Right Floor of Mouth Description & Findings Description and Findings: n/a Anesthesia Type get Estimated Blood Loss minimal Packing none. Specimen(s) collected/removed right floor of mouth mass-clinically a shabbir- JULIO WOODS MD Oct 19, 2018 09:15
[2018-10-19] MEDS ORDERED: HYDROmorphone 2 MG/ML VIAL (DILAUDID) IV ONE ×2 (09:30)
[2018-10-19 10:20] VITALS: BP 128/67
--- NOTE | 2018-10-19 10:21 | Anesthesia-General Post-Op ---
General Patient Condition Mental Status/LOC: Same as Preop Cardiovascular: Satisfactory Nausea/Vomiting: Absent Respiratory: Satisfactory Pain: Controlled Complications: Absent Post Op Complications Complications None Follow Up Care/Instructions Patient Instructions None needed. Anesthesia/Patient Condition Patient Condition Patient is doing well, no complaints, stable vital signs, no apparent adverse anesthesia problems. No complications reported per nursing. REINIER SEBASTIAN CRNA Oct 19, 2018 10:21
[2018-10-19] MEDS ORDERED: HYDR-3812 PO ×2 (10:29→10:41)
[2018-10-19] MEDS ORDERED: 2% VISCOUS XYLOCAINE (10:33)
[2018-10-19 10:50] VITALS: BP 115/67
[2018-10-19 11:20] VITALS: BP 111/74
[2018-10-20] MEDS ORDERED: CEFP500T4 PO (20:16)
== END 2018-10-19 11:20 | disposition home or self-care (01) ==
LOC: SDC 06:55
PROVIDERS: ATTEND Otolaryngology Otolaryngology/Facial Plastic Surgery
DX: K11.8 Other diseases of salivary glands (principal); J45.909 Unspecified asthma, uncomplicated; F41.9 Anxiety disorder, unspecified; G47.9 Sleep disorder, unspecified; Z79.899 Other long term (current) drug therapy
CPT/HCPCS: 36415; 80048; 84703; 85025; 87081

== ENCOUNTER 2018-10-20 19:18 | Emergency (ER) | payer BC ==
[~2018-10-20] VITALS: Ht 175.3 cm; Wt 106.6 kg
[~2018-10-20 19:18] MED LIST changes: +2% VISCOUS XYLOCAINE; +HYDR-3812 PO
--- OUTSIDE RECORDS SUMMARY | 2018-10-20 19:23 | XMS REPORT | Continuity of Care Document ---
Demographics x Preferred Language Unknown Marital Status Unknown Religion Affiliation Unknown Race Unknown Ethnic Group Unknown Author Author [facility] Organization [facility] Address Unknown Phone Unavailable Allergies Active Description Code Type Severity Reaction Onset Reported/Identified Relationship to Patient Clinical Status Yes fentanyl 3571 Drug Allergy N/A N/A Confirmed or Verified Yes FENTANYL 71965 DRUG INGREDI Low ItchingRRash 11/24/2014 Yes FENTANYL 60256 DRUG INGREDI Low Itching~Rash 11/24/2014 Yes FENTANYL 99189 DRUG INGREDI Low ItchingRRash 11/24/2014 Yes FENTANYL 03870 DRUG INGREDI Low Itching~Rash 11/24/2014 Medications Medication Packaging Start Date Stop Date Route Dosage Sig DEXAMETHASONE 1 MG PO TABS 2016 Oral 1 ONCE Problems Date Dx Coded Attending Type Code Diagnosis Diagnosed By 11/26/2014 V 039657 Knee Pain FERCHO DUTTON 11/26/2014 V 836.1 [...] Procedures Code Description Performed By Performed On [id number] NEISSERIA GONORRHOEAE AMPLIFIED PROBE 06/22/2015 LFR3603 CHLAMYDIA TRACHOMATIS AMPLIFIED PROBE 06/22/2015 FXN497 T4, FREE 06/22/2016 WWS318 T3 06/22/2016 LAB17 COMPREHENSIVE METABOLIC PANEL 06/22/2016 [id number] CBC WITH AUTO DIFFERENTIAL 06/22/2016 CQL6241 URINALYSIS, REFLEX CULTURE IF NEEDED 06/22/2016 WTS5359 TSH (REFLEX FREE T4 IF ABNORMAL) 06/22/2016 NIU918 CBC AND DIFFERENTIAL 06/22/2016 KXI825 DRUG SCREEN (8) MEDICAL 06/22/2016 Results Test [...] RED CELL DISTRIBUTION WIDTH 13.0 % 11.9-15.5 0778315 6.9 10E9/L 3.5-10.5 1920616 2.10 10E9/L 0.90-2.90 6069376 0.60 10E9/L 0.30-0.90 4900645 0.10 10E9/L 0.05-0.50 1044746 4.00 10E9/L 1.70-7.00 0413780 0.00 10E9/L 0.00-0.30 URINALYSIS, REFLEX CULTURE IF [...] mg/dL 0.2 WBC UA 0-3 /HPF 0-3 3090322 Negative Negative T3 - 06/22/16 09:51 TOTAL [...] 1.003-1.030 THC Negative Cutoff 50 ng/mL Negative [id number] Chain of custody not received T4, FREE [...] tube in lab CORTISOL,DEXA.SUPPRESS - 01/04/17 08:12 [id number] < ug/dL <=5.0 PAP, LIQUID-BASED - 06/29/17 15:00 [id number] Result to be found under pathology section PAP, LIQUID-BASED WITH REFLEX HPV IF ASCUS - 07/20/18 13:50 [id number] Result to be found under pathology section Encounters ACCT No. Visit Date/Time Discharge Status Pt. Type Provider Facility Loc./Unit Complaint [id number] 11/11/2015 23:37:00 11/12/2015 00:30:00 DIS Emergency BIRDIE BANSAL [facility] EMR [id number] 01/04/2017 07:58:31 01/04/2017 23:59:59 [facility] Outpatient [facility] CODE [id number] 01/02/2017 10:44:31 01/02/2017 23:59:59 [facility] Outpatient [facility] CODE [id number] 01/02/2017 09:55:24 01/02/2017 23:59:59 CLS Outpatient SIGIFREDO TORRES [facility] CODE [id number] 08/12/2016 10:05:27 08/12/2016 23:59:59 CLS Outpatient [facility] CODE [id number] 08/12/2016 09:17:55 08/12/2016 23:59:59 CLS Outpatient SIGIFREDO TORRES [facility] CODE [id number] 07/19/2016 12:49:11 07/19/2016 23:59:59 CLS Outpatient [facility] HCOT [id number] 07/19/2016 10:26:15 07/19/2016 23:59:59 CLS Outpatient GEO JIANG [facility] 901 [id number] 06/28/2016 14:48:04 06/28/2016 23:59:00 [place] [facility] [id number] 06/28/2016 10:23:00 06/28/2016 14:47:00 [facility] [id number] 06/27/2016 14:58:39 06/27/2016 23:59:00 [id number] 06/22/2016 09:41:46 06/22/2016 23:59:59 CLS Outpatient [facility] 901 [id number] 06/22/2016 08:53:41 06/22/2016 23:59:59 [facility] 901 [id number] 08/03/2018 07:46:40 Document Registration [id number] 07/19/2017 10:38:43 Document Registration [id number] 01/02/2017 13:58:38 Document Registration [id number] 06/26/2015 08:32:02 Document Registration [id number] 11/26/2014 10:53:00 Document Registration [id number] 10/10/2018 11:09:13 10/10/2018 23:59:59 CLS Outpatient PENNY THOMSON [place] [employer] [facility] [id number] 07/20/2018 15:33:46 07/20/2018 23:59:59 CLS Outpatient [place] [employer] [facility] [id number] 07/20/2018 13:34:55 07/20/2018 23:59:59 CLS Outpatient GAURAV MATOS [place] [employer] [facility] [id number] 06/29/2017 16:21:49 06/29/2017 23:59:59 CLS Outpatient [place] [facility] [employer] [facility] [id number] 06/29/2017 14:40:36 06/29/2017 23:59:59 CLS Outpatient KAMALJIT QUEEN [facility] [facility] [id number] 06/27/2016 09:05:29 06/27/2016 23:59:59 CLS Outpatient GAURAV MATOS [place] [employer] [facility] [id number] 06/22/2015 15:32:46 Document Registration [id number] 11/30/2016 14:39:16 ACT Unknown
--- NOTE | 2018-10-20 19:42 | ED General ---
General Stated Complaint: "FEELS LIKE I'M HAVING AN ALLERGIC REACTION" Source of Information: Patient History of Present Illness Date Seen by Provider: Oct 20, 2018 Time Seen by Provider: 19:27 Initial Comments PT ARRIVES VIA POV FROM HOME PT HAD A "CYST" REMOVED FROM UNDER THE RIGHT SIDE OF HER TONGUE YESTERDAY BY DR. WOODS SENT HOME WITH RX FOR HYDROCODONE AND VISCOUS LIDOCAINE. NO ANTIBIOTICS. HAS HAD HYDROCODONE BEFORE AND NEVER HAD A PROBLEM ONLY C/O MILD PAIN TO SURGICAL SITE. LAST NIGHT SHE STARTED "FEELING A LITTLE WEIRD" TODAY SHE FEELS LIKE IT'S A LITTLE HARD TO BREATH C/O SORE THROAT SINCE YESTERDAY STATES SHE CAN EAT AND DRINK, HURTS TO SWALLOW. STATES HER FACE HAS FELT HOT AND SHE HAS HAD SWEATS TODAY, HAS NOT CHECKED TEMP NO COUGH OR RUNNY NOSE PCP: PT IS [employer]. MOM LIVES IN [place], DAD LIVES IN [place] Allergies and Home Medications Allergies Coded Allergies: fentanyl (Verified Allergy, Unknown, RASH, 10/15/18) Home Medications Hydrocodone/Acetaminophen 1 Each Tablet, 1 TAB PO Q4H Prescribed by: FILIPE GIBSON on 10/19/18 1041 Sertraline HCl 50 Mg Tablet, 50 MG PO DAILY, (Reported) Trazodone HCl 50 Mg Tablet, 50 MG PO HS, (Reported) [bcp] , 1 TAB PO DAILY, (Reported) Patient Home Medication List Home Medication List Reviewed: Yes Review of Systems Review of Systems Constitutional: see HPI, diaphoresis, fever, malaise EENTM: see HPI, mouth pain, throat pain; No mouth swelling, No throat swelling Respiratory: see HPI; No cough Cardiovascular: no symptoms reported Gastrointestinal: no symptoms reported; No nausea, No vomiting Musculoskeletal: no symptoms reported Skin: no symptoms reported Psychiatric/Neurological: No Symptoms Reported Hematologic/Lymphatic: No Symptoms Reported Immunological/Allergic: no symptoms reported Past Vjatuul-Pkyjkb-Gnrfth Hx Patient Social History Alcohol Use: Occasionally Uses Recreational Drug Use: No Smoking Status: Never a Smoker 2nd Hand Smoke Exposure: No Recent Foreign Travel: No Contact w/Someone Who Travel: No Recent Hopitalizations: No Seasonal Allergies Seasonal Allergies: No Past Medical History Surgeries: Yes (LEFT HIP SCOPE/REPAIR OF TORN LABRUM; LEFT KNEE SCOPE; RIGHT SHOULDER SCOPE; "CYST" REMOVED FROM UNDER TONGUE 10/19/18-DR. WOODS; WISDOM TEETH REMOVED) Orthopedic Respiratory: Yes (EXERCISE INDUCED ASTHMA--USES INHALER PRN) Asthma Cardiac: No Neurological: No Reproductive Disorders: No Genitourinary: No Gastrointestinal: No Musculoskeletal: Yes (RIGHT SHOULDER, LEFT HIP, LEFT KNEE SURGERY; L5 FX) Fractures Endocrine: No HEENT: Yes (CYST UNDER TONGUE) Cancer: No Psychosocial: Yes Sleep Difficulties, Anxiety Integumentary: No Blood Disorders: No Physical Exam Vital Signs Vital Signs - First Documented 10/20/18 19:25 Temp 98.1 Pulse 78 Resp 16 B/P (MAP) 123/85 (98) O2 Delivery Room Air Capillary Refill : Height, Weight, BMI Height: 5'9.00" Weight: 235lbs. 0.0oz. 106.605812lg; 34.7 BMI Method: General Appearance: No Apparent Distress, WD/WN HEENT: PERRL/EOMI, TMs Normal, Other (SURGICAL SITE TO RIGHT SUBLINGUAL AREA WITH NORMAL POST OP APPEARANCE WITH SLIGHT ERYTHEMA AND SWELLING. NO DRAINAGE. TONSILS/POSTSERIOR PHARYNGX MILDLY INFLAMED-NO EXUDATE. TM'S CLEAR. NOSE CLEAR. ) Neck: Full Range of Motion, Supple, Lymphadenopathy (L) (MILD ANTERIOR), Lymphadenopathy (R) (MILD ANTERIOR), Other (VERY TENDER TO ANTERIOR CERVICAL NODE, SUBMANDIBULAR AND SUBLINGUAL AREA, AND DIFFUSELY TO ANTERIOR NECK. THYROID SLIGHTLY PROMINENT AND TENDER) Respiratory: Normal Breath Sounds, No Accessory Muscle Use, No Respiratory Distress Cardiovascular: Regular Rate, Rhythm, No Edema, No JVD, No Murmur, Normal Peripheral Pulses Gastrointestinal: Non Tender, Soft Extremity: Normal Inspection, No Pedal Edema Neurologic/Psychiatric: Alert, Oriented x3, No Motor/Sensory Deficits, Normal Mood/Affect, mental health clinician II-XII Norm as Tested Skin: Normal Color, Warm/Dry; No Rash Progress/Results/Core Measures Suspected Sepsis SIRS Temperature: Pulse: Respiratory Rate: Blood Pressure / Mean: Results/Orders Lab Results Laboratory Tests Test 10/20/18 19:33 Range/Units Group A Streptococcus Screen NEGATIVE NEGATIVE Micro Results Microbiology 10/20/18 Influenza Types A,B Antigen (JHOAN) - Final, Complete My Orders Orders - REDDY PASCUAL DO Rapid Strep A Screen (10/20/18 19:34) Influenza A And B Antigens (10/20/18 19:34) Ceftriaxone For Im Use (Rocephin For Im (10/21/18 09:00) Methylprednisolone Sod Succ (Solu-Medrol (10/20/18 20:15) Lidocaine 1% Inj 20 Ml (Xylocaine 1% Inj (10/20/18 20:15) Vital Signs/I&O 10/20/18 19:25 Temp 98.1 Pulse 78 Resp 16 B/P (MAP) 123/85 (98) O2 Delivery Room Air Capillary Refill : Departure Impression Primary Impression: Pharyngitis Additional Impression: S/P SUBLINGUAL CYST REMOVAL Disposition: HOME, SELF-CARE Condition: Stable Departure-Patient Inst. Referrals: JULIO WOODS MD [employer] [facility] [facility] (PCP) Primary Care Physician Patient Instructions: Postoperative Pain (DC), Sore Throat, Adult (DC) Add. Discharge Instructions: CONTINUE ALL POST OP INSTRUCTIONS CONTINUE HYDROCODONE AND VISCOUS LIDOCAINE PRESCRIBED FOLLOW UP WITH DR. WOODS ON MONDAY FOR FURTHER CARE RETURN TO ER IF WORSE Scripts Cefprozil (Cefprozil) 500 Mg Tablet 500 MG PO BID, #20 TAB Prov: REDDY PASCUAL DO 10/20/18 REDDY PASCUAL DO Oct 20, 2018 19:42
[2018-10-20] MEDS ORDERED: cefTRIAXone 1,000 MG/2.86 ml vial (IM ONLY) ONE (20:13)
[2018-10-20] MEDS ORDERED: methylPREDNISolone 125 MG (Solu-MEDROL) VIAL IM ONE (20:15)
[2018-10-20] MEDS ORDERED: LIDOCAINE 1% INJ 20 ML 20 ML VIAL INJ ONE (20:15)
[2018-10-20] MEDS ORDERED: CEFP500T4 PO (20:16)
[2018-10-20 20:45] VITALS: BP 118/84
[2018-10-21] MEDS ORDERED: cefTRIAXone 1,000 MG/2.86 ml vial (IM ONLY) IM SCH (09:00)
== END 2018-10-20 20:47 | disposition home or self-care (01) ==
LOC: EDUNIT# 19:18 → ER 19:19
DX: J02.9 Acute pharyngitis, unspecified (principal); J45.909 Unspecified asthma, uncomplicated; F41.9 Anxiety disorder, unspecified; Z98.890 Other specified postprocedural states; Z88.8 Allergy status to other drugs, medicaments and biological substances
CPT/HCPCS: 87430; 87804